=== PATIENT | female | born 1950 | race Caucasian/White ===

== ENCOUNTER → 2022-01-03 | Outpatient (CLI) | payer MEDICARE, OTHER | LOC: EXRD 10:43 | DX: M81.0 Age-related osteoporosis without current pathological fracture (principal) | CPT/HCPCS: 77080 ==

== ENCOUNTER → 2022-01-29 | Outpatient (CLI) | payer MEDICARE, OTHER | LOC: MRI 13:27 | DX: H53.2 Diplopia (principal); G31.9 Degenerative disease of nervous system, unspecified | CPT/HCPCS: 70553; A9577 ==